=== PATIENT | female | born 1970 | race Caucasian/White ===

== ENCOUNTER 2019-03-18 14:53 | Emergency (ER) | payer BC ==
--- OUTSIDE RECORDS SUMMARY | 2019-03-18 14:59 | XMS REPORT | Continuity of Care Document ---
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 Stefany Myles RPAC Primary Care Physician Unavailable Payers Date Identification Numbers Payment Provider Subscriber Effective: 2018 Policy Number: [id number] Jessica Hahn PayID: [id number] [address] [place] [address] Expires: 2018 Policy Number: [id number] Jessica Hahn Group Number: [id number] [address] PayID: [id number] [place] [address] Advance Directives Description No Information Available Problems Date Description Provider Status Onset: 01/30/2018 Benign essential hypertension Jack Arredondo MD, FACS Active Onset: 01/30/2018 Pure hypercholesterolemia Jack Arredondo MD, FACS Active Onset: 01/30/2018 Lymphadenopathy Jack Arredondo MD, FACS Active Onset: 02/09/2018 Degeneration of intervertebral disc Stefany Myles RPAC Active Note: cervical,dorsal,lumbar Onset: 02/09/2018 Idiopathic scoliosis Stefany Myles RPAC Active Note: mild dorsal/lumbar Onset: 02/10/2018 Allergy to mold Stefany Myles RPAC Active Onset: 02/10/2018 Vitamin D deficiency Stefany Myles RPAC Active Onset: 02/10/2018 Hyperlipidemia Stefany Myles RPAC Active Onset: 02/10/2018 Low back pain Stefany Myles RPAC Active Onset: 06/27/2018 [facility]costal [facility]: 02/21/2019 Screening mammography Jack Arredondo MD,FACS Active Family History Date Family Member(s) Observation Comments : (age 75 Years) Father due to Fisher's Disease Father Skin Cancer Mother due to kidney failure () Mother Stroke Social History Type Date Description Comments Sex Unknown Lives With Alone Diet Patient is on a low fat diet Occupation Currently Working ETOH Use Rarely consumes alcohol Tobacco Use Start: Unknown Patient has never smoked Smoking Status Reviewed: 12/29/18 Patient has never smoked Exercise Type/Frequency Walks daily Allergies, Adverse Reactions, Alerts Date Description Reaction Status Severity Comments 01/24/2018 Hydrocodone hives Active 08/27/2018 Gemifloxacin Hives And Rash Active 01/24/2018 Claritin-D rash & swelling of extremities Active 08/27/2018 Guaifenesin Itchy Rash Active 01/24/2018 Amoxicillin hives Active 08/27/2018 Pseudoephedrine Hives And Swelling Active 01/24/2018 Mucinex Urticaria Active 08/27/2018 Loratadine Hives And Swelling Active 01/24/2018 Factive hives Active 01/30/2018 Vicodin Active 02/10/2018 Statins cannot tolerate Active Medications Medication Date Status Form Strength Qnty SIG Indications Ordering Provider Olopatadine HCL 12/29/ Active Solution 0.1% 5ml instill 1 H10.9 , 2018 drop into Ron, both eyes M.D. two times a day for itchy/watery eyes Magnesium 08/28/ Active Tablets 400mg 1 by mouth Unknown 2017 every day Riboflavin 08/28/ Active Capsules 400mg 1 cap by Unknown 2017 mouth every day Propranolol HCL 02/10/ Active Caps ER 80mg 14cap 1 tab by Bill, ER 2017 24HR s mouth daily Tawnya Velasquez Losartan 02/08/ Active Tablets 100-25mg 14tab take 1 Khan, Potassium/Hydroc 2018 s tablet by jacqueline Velasquezorothiazide mouth every M.D. morning Womens 50+ 00// Active Capsules 1 tab orally Unknown Advanced 0000 once daily Lysine HCL / Active Tablets 1000mg 1 tab orally Unknown 0000 once daily Vitamin D High / Active Capsules 1000Unit 2 tabs by Unknown Potency 0000 mouth every day Shawn-E Complete / Active Tablets 400mg 1tab orally Unknown 0000 DR once daily [place] 3 / Active Capsules 1000mg 1 by mouth Unknown 0000 every day Aloe Vera / Active Capsules 470mg 1cap orally Unknown 0000 daily Zyrtec Allergy / Active Tablets 10mg 1 tab by Unknown 0000 mouth every night Metoclopramide 08/28/ Hx Tablets 10mg 2 tabs by Unknown HCL 2018 - mouth at start of 2017 repeat in 3 hours Rizatriptan 08/28/ Hx Tablets 10mg 1 tab by Unknown Benzoate 2017 - mouth @ start of , 2017 repeat in 2 hours Meloxicam 06/27/ Hx Tablets 15mg 30tab take one R07.82 Khan, 2017 - s tablet by Ron 09/13/ mouth every M.D. 2017 day with food for chest wall pain Levaquin 01/30/ Hx Tablets 500mg 10tab take one R59.0 Arnulfo, 2018 - s tablet by Jack 02/21/ mouth daily MACHO JOSEPH 2018 for 10 days. take it in the middle of your meal Diflucan 01/30/ Hx Tablets 200mg 2tabs take one R59.0 Arnulfo, 2018 - tablet once, Jack 02/21/ with meals MACHO JOSEPH 2018 if you develop yeast infection. may repeat after 3-4 days if no improvement Propranolol HCL / Hx Tablets 20mg 30tab 1 by mouth Khan, 0000 - s every day Ron 02/10/ M.DVikki 2018 Losartan / Hx Tablets 25mg 30tab 1 by mouth Khan, Potassium 0000 - s every day Ron 02/08/ M.DVikki 2018 Immunizations Description No Information Available Vital Signs Date Vital Result Comment 02/21/2019 8:46am BP Systolic 117 mmHg BP Diastolic 71 mmHg Heart Rate 58 /min Respiratory Rate 17 /min Height 65 inches 5'5" Weight 181.00 lb BMI (Body Mass Index) 30.1 kg/m2 BSA (Body Surface Area) 1.90 m2 [place] body weight in kilograms 57 kg 12/29/2018 10:37am BP Systolic Sitting Left Arm 114 mmHg BP Diastolic Sitting Left Arm 84 mmHg Body Temperature 97.0 F Heart Rate 64 /min Respiratory Rate 18 /min Height 65 inches 5'5" Weight 184.00 lb BMI (Body Mass Index) 30.6 kg/m2 BSA (Body Surface Area) 1.91 m2 [place] body weight in kilograms 57 kg O2 % BldC Oximetry 99 % Ra 09/13/2018 1:33pm BP Systolic 117 mmHg BP Diastolic 88 mmHg Body Temperature 96.1 F Heart Rate 65 /min Respiratory Rate 18 /min Height 65 inches 5'5" Weight 182.25 lb BMI (Body Mass Index) 30.3 kg/m2 BSA (Body Surface Area) 1.90 m2 [place] body weight in kilograms 57 kg O2 % BldC Oximetry 98 % 06/27/2018 3:02pm BP Systolic Sitting Right Arm 102 mmHg BP Diastolic Sitting Right Arm 60 mmHg Body Temperature 98.7 F Heart Rate 70 /min reg Respiratory Rate 18 /min Height 65 inches 5'5" Weight 169.00 lb BMI (Body Mass Index) 28.1 kg/m2 BSA (Body Surface Area) 1.84 m2 [place] body weight in kilograms 57 kg O2 % BldC Oximetry 98 % 04/12/2018 9:45am BP Systolic 126 mmHg BP Diastolic 80 mmHg Height 65 inches 5'5" Weight 178.00 lb BMI (Body Mass Index) 29.6 kg/m2 BSA (Body Surface Area) 1.88 m2 [place] body weight in kilograms 57 kg 03/14/2018 1:03pm BP Systolic 128 mmHg BP Diastolic 88 mmHg Height 65 inches 5'5" Weight 178.00 lb BMI (Body Mass Index) 29.6 kg/m2 BSA (Body Surface Area) 1.88 m2 [place] body weight in kilograms 57 kg 02/21/2018 9:07am BP Systolic 122 mmHg BP Diastolic 88 mmHg Height 65 inches 5'5" Weight 178.00 lb BMI (Body Mass Index) 29.6 kg/m2 BSA (Body Surface Area) 1.88 m2 [place] body weight in kilograms 57 kg 02/10/2018 9:00am BP Systolic Sitting Right Arm 120 mmHg BP Diastolic Sitting Right Arm 68 mmHg Heart Rate 70 /min Height 65 inches 5'5" Weight 183.00 lb BMI (Body Mass Index) 30.4 kg/m2 BSA (Body Surface Area) 1.90 m2 [place] body weight in kilograms 57 kg O2 % BldC Oximetry 98 % ra 01/30/2018 9:17am BP Systolic 128 mmHg BP Diastolic 88 mmHg Height 66 inches 5'6" Weight 181.00 lb BMI (Body Mass Index) 29.2 kg/m2 BSA (Body Surface Area) 1.92 m2 [place] body weight in kilograms 59 kg 01/24/2018 12:58pm BP Systolic Sitting Left Arm 130 mmHg BP Diastolic Sitting Left Arm 88 mmHg Body Temperature 99.2 F Heart Rate 84 /min Respiratory Rate 16 /min Height 66 inches 5'6" Weight 184.00 lb BMI (Body Mass Index) 29.7 kg/m2 BSA (Body Surface Area) 1.93 m2 [place] body weight in kilograms 59 kg O2 % BldC Oximetry 98 % Results Test Date Facility Test Result H/L Range Note Monocytes/leuk NFr 08/27/20 N2N/CCD Import Monocytes/leuk NFr 7.8 4.3- 13.2 Bld Auto 18 Bld Auto Neutrophils # Bld 08/27/20 N2N/CCD Import Neutrophils # Bld 3.35 1.8- 7.0 Auto 18 Auto Neutrophils/leuk NFr 08/27/20 N2N/CCD Import Neutrophils/leuk 59.2 40.4- 72. Bld Auto 18 NFr Bld Auto 8 Potassium SerPl-sCnc 08/27/20 N2N/CCD Import Potassium 3.5 3.5-5.1 18 SerPl-sCnc RDW RBC Auto 08/27/20 N2N/CCD Import RDW RBC Auto 40.8 3-47 18 RDW RBC Auto-Rto 08/27/20 N2N/CCD Import RDW RBC Auto-Rto 13.7 11.7-14. 18 4 Serum carbon dioxide 08/27/20 N2N/CCD Import Serum carbon 29 21-32 measurement 18 dioxide measurement Serum or plasma 08/27/20 N2N/CCD Import Serum or plasma 3.6 3.4-5.0 albumin measurement 18 albumin measurement (mass/volume) (mass/volume) Serum or plasma 08/27/20 N2N/CCD Import Serum or plasma 89 45-117 alkaline phosphatase 18 alkaline measurement ( phosphatase measurement (enzymatic activity/volume) Serum or plasma 08/27/20 N2N/CCD Import Serum or plasma 21 15-37 aspartate 18 aspartate aminotransferase aminotransferase measure measurement (enzymatic activity/volume) Serum or plasma 08/27/20 N2N/CCD Import Serum or plasma 9.4 8.5-10.1 calcium measurement 18 calcium measurement (mass/volume) (mass/volume) Serum or plasma 08/27/20 N2N/CCD Import Serum or plasma 1.0 0.6-1.3 creatinine 18 creatinine measurement measurement (mass/volum (mass/volume) Serum or plasma 08/27/20 N2N/CCD Import Serum or plasma 94 74-106 glucose measurement 18 glucose measurement (mass/volume) (mass/volume) Serum or plasma 08/27/20 N2N/CCD Import Serum or plasma 7.8 6.4-8.2 protein measurement 18 protein measurement (mass/volume) (mass/volume) Serum or plasma 08/27/20 N2N/CCD Import Serum or plasma 0.5 0.2-1.0 total bilirubin 18 total bilirubin measurement (mass/ measurement (mass/volume) Serum or plasma urea 08/27/20 N2N/CCD Import Serum or plasma 17 7-18 nitrogen measurement 18 urea nitrogen (mass/vo measurement (mass/volume) Serum or plasma urea 08/27/20 N2N/CCD Import Serum or plasma 17.0 nitrogen/creatinine 18 urea mass rati nitrogen/creatinine mass ratio Serum sodium 08/27/20 N2N/CCD Import Serum sodium 141 136-145 measurement 18 measurement CBC W/Automated Diff 08/27/20 [facility] White Blood Count 5.7 K/uL N 3.1-10.7 1 [address] [place] [address] [phone] Red Blood Count 4.89 M/uL N 3.90-5.40 Hemoglobin 14.1 gm/dL N 11.6-15.8 Hematocrit 40.9 % N 36.0-46.1 Mean Cell Volume 83.6 fl N 80.9-99.0 Mean Corpuscular HGB 28.8 pg N 25.9-32.7 Mean Corpuscular HGB Conc 34.5 g/dL High 30.8-34.3 Platelet Count 198 K/uL N 155-360 Red Cell Distri Width SD 40.8 fl N 3-47 Red Cell Distri Width %CV 13.7 % N 11.7-14.4 Mean Platelet Volume 9.4 fL N 8.9-12.4 Neut% 59.2 % N 40.4-72.8 Lymph % 30.3 % N 20.0-42.0 [place] % 7.8 % N 4.3-13.2 Eo% 2.5 % N 0.0-6.6 Bas% 0.2 % N 0.0-1.1 Neut# 3.35 K/uL N 1.8-7.0 Lymph # 1.71 K/uL N 1.0-4.0 [place] # 0.44 K/uL N 0.3-0.9 Eos # 0.14 K/uL N 0.0-0.5 Baso # 0.01 K/uL N 0.0-0.1 Comprehensive Metabolic 08/27/2018 [facility] Glucose 94 mg/dL N 74-106 [address] [place] [address] [phone] BUN 17 mg/dL N 7-18 Creatinine 1.0 mg/dL N 0.6-1.3 Glom Filtration Rate, Estimate >60 mL/min >60 If >60 mL/min >60 2 BUN/Creat 17.0 ratio Sodium 141 mmol/L N 136-145 Potassium 3.5 mmol/L N 3.5-5.1 Chloride 104 mmol/L N 98-107 Carbon Dioxide 29 mmol/L N 21-32 Anion Gap 8 mEq/L N 8-16 Calcium 9.4 mg/dL N 8.5-10.1 Total Protein 7.8 g/dL N 6.4-8.2 Albumin 3.6 g/dL N 3.4-5.0 Globulin 4.2 g/dL N 1.9-4.3 Alb/Glob 0.9 ratio Bilirubin,Total 0.5 mg/dL N 0.2-1.0 Sgot/Ast 21 U/L N 15-37 SGPT/Alt 33 U/L N 12-78 Alkaline Phosphatase 89 U/L N 45-117 Alt SerPl-cCnc 08/27/2018 N2N/CCD Import Alt SerPl-cCnc 33 12-78 Albumin/Glob SerPl 08/27/2018 N2N/CCD Import Albumin/Glob SerPl 0.9 Anion Gap 08/27/2018 N2N/CCD Import Anion Gap 8 8-16 SerPl-sCnc SerPl-sCnc Automated blood 08/27/2018 N2N/CCD Import Automated blood 0.01 0.0-0.1 basophil count basophil count (count/volume) (count/volume) Automated blood 08/27/2018 N2N/CCD Import Automated blood 0.14 0.0-0.5 eosinophil count eosinophil count Automated blood 08/27/2018 N2N/CCD Import Automated blood 40.9 36.0- 46.1 hematocrit (volume hematocrit (volume fraction) fraction) Automated blood 08/27/2018 N2N/CCD Import Automated blood 1.71 1.0-4.0 lymphocyte count lymphocyte count (number/volume) (number/volume) Automated blood 08/27/2018 N2N/CCD Import Automated blood 198 155-360 platelet count platelet count Automated blood 08/27/2018 N2N/CCD Import Automated blood 9.4 8.9-12.4 platelet mean platelet mean volume measurement volume measurement Lymphocytes/leuk 08/27/2018 N2N/CCD Import Lymphocytes/leuk 30.3 20.0- 42.0 NFr Bld Auto NFr Bld Auto Globulin Ser 08/27/2018 N2N/CCD Import Globulin Ser 4.2 1.9-4.3 Calc-mCnc Calc-mCnc Eosinophil/leuk 08/27/2018 N2N/CCD Import Eosinophil/leuk 2.5 0.0-6.6 NFr Bld Auto NFr Bld Auto Chloride 08/27/2018 N2N/CCD Import Chloride 104 98-107 SerPl-sCnc SerPl-sCnc Blood monocytes 08/27/2018 N2N/CCD Import Blood monocytes 0.44 0.3-0.9 automated count automated count (number/volume) (number/volume) Blood leukocytes 08/27/2018 N2N/CCD Import Blood leukocytes 5.7 3.1- 10.7 automated count automated count (number/volume) (number/volume) Blood hemoglobin 08/27/2018 N2N/CCD Import Blood hemoglobin 14.1 11.6- 15.8 measurement measurement (mass/volume) (mass/volume) Blood erythrocytes 08/27/2018 N2N/CCD Import Blood erythrocytes 4.89 3.90-5.40 automated count automated count (number/volume) (number/volume) Basophils/leuk NFr 08/27/2018 N2N/CCD Import Basophils/leuk NFr 0.2 0.0- 1.1 Bld Auto Bld Auto Automated 08/27/2018 N2N/CCD Import Automated 83.6 80.9-99.0 erythrocyte mean erythrocyte mean corpuscular volume corpuscular volume Automated 08/27/2018 N2N/CCD Import Automated 34.5 High 30.8-34.3 erythrocyte mean erythrocyte mean corpuscular corpuscular hemoglobin hemoglobin concentration measurement (mass/volume) Automated 08/27/2018 N2N/CCD Import Automated 28.8 25.9-32.7 erythrocyte mean erythrocyte mean corpuscular corpuscular hemoglobin hemoglobin (mass per erythrocyte) CBS W/Automated 03/21/2018 [facility] White Blood Count 7.1 K/uL N 3.1-10.7 3 Diff [address] [place] [address] [phone] Red Blood Count 4.66 M/uL N 3.90-5.40 Hemoglobin 13.5 gm/dL N 11.6-15.8 Hematocrit 38.5 % N 36.0-46.1 Mean Cell Volume 82.6 fl N 80.9-99.0 Mean Corpuscular HGB 29.0 pg N 25.9-32.7 Mean Corpuscular HGB Conc 35.1 g/dL High 30.8-34.3 Platelet Count 217 K/uL N 155-360 Red Cell Distri Width SD 40.7 fl N 3-47 Red Cell Distri Width %CV 14.1 % N 11.7-14.4 Mean Platelet Volume 9.8 fL N 8.9-12.4 Neut% 61.6 % N 40.4-72.8 Lymph % 30.5 % N 20.0-42.0 [place] % 5.9 % N 4.3-13.2 Eo% 1.7 % N 0.0-6.6 Bas% 0.3 % N 0.0-1.1 Neut# 4.35 K/uL N 1.8-7.0 Lymph # 2.15 K/uL N 1.0-4.0 [place] # 0.42 K/uL N 0.3-0.9 Eos # 0.12 K/uL N 0.0-0.5 Baso # 0.02 K/uL N 0.0-0.1 1 [place] FOR 3 DAYS 2 Note: Persistent reduction for 3 months or more in an eGFR <60 mL/min/1.73 m2 defines CKD. Patients with eGFR values >/=60 mL/min/1.73 m2 may also have CKD if evidence of persistent proteinuria is present. The original MDRD equation for estimated GFR is not valid for patients less than 18 years of age. Additional information may be found at www.kdoqi.org. 3 R59.0 Procedures Date Code Description Status 03/30/2018 75779 Biopsy/Exc.Lymph Node/Superficial Completed 03/30/[address] Soft Tissue Local Device Completed 02/09/2018 [id number] Mammogram Completed Encounters Type Date Location Provider Dx Diagnosis Office Visit 12/29/2018 Primary Care Shameka, H10.9 Unspecified 10:30a Office Stefany [facility] conjunctivitis I10 Essential (primary) hypertension Office Visit 09/13/2018 1:30p Primary Care Aubree G43.809 Other migraine, Office NIRALI Tubbs not intractable, without status migrainosus I10 Essential (primary) hypertension Office Visit 06/27/2018 2:45p Primary Care Shameka, I10 Essential ( primary) Office Stefany [facility] hypertension R07.82 Intercostal pain Office Visit 04/12/2018 9:45a Surgical Office Arnulfo R59.0 Localized enlarged Jack, lymph nodes MACHO JOSEPH Office Visit 03/14/2018 1:00p Surgical Office Arnulfo R59.0 Localized enlarged Jack, lymph nodes MACHO JOSEPH Office Visit 02/21/2018 9:00a Surgical Office Arnulfo R59.0 Localized enlarged Jack, lymph nodes MACHO JOSEPH Office Visit 02/10/2018 9:00a Primary Care Shameka, I10 Essential ( primary) Office Stefany [facility] hypertension E78.5 Hyperlipidemia, unspecified M54.5 Low back pain Office Visit 01/30/2018 9:00a Surgical Office Jack Arredondo R59.0 Localized MACHO JOSEPH enlarged lymph nodes Office Visit 01/24/2018 1:00p Primary Care Andrae, 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 one year mammogram from last study then will see her in clinic, unless new development happen in her breasts.
[2019-03-18 15:17] VITALS: BP 121/91
[2019-03-18] MEDS ORDERED: Albuterol 2.5 MG/3 ML NEB.SOL* (0.083%) INH ONE (15:26)
--- NOTE | 2019-03-18 15:27 | UC ---
General HPI - HPI Summary HPI Summary: per triage, ONSET 4 DAYS AGO WITH CHEST CONGESTION COUGH, NEXT DAY CHILLS AND FEVER..LOOSE BMS ONE NIGHT. CHEST CONGESTION AND WHEEZING. HEADACHE AND SINUS PRESSURE - History of Current Complaint Stated Complaint: FEVER, COUGH Time Seen by Provider: 03/18/19 15:04 Hx Obtained From: Patient Pain Intensity: 6 Associated Signs & Symptoms: Negative: Chest Pain - Allergy/Home Medications Allergies/Adverse Reactions: Allergies Allergy/AdvReac Type Severity Reaction Status Date / Time acetaminophen [From Vicodin] Allergy Hives Verified 03/18/19 15:09 gemifloxacin [From Factive] Allergy Hives Verified 03/18/19 15:09 hydrocodone [From Vicodin] Allergy Hives Verified 03/18/19 15:09 loratadine [From Claritin-D] Allergy Hives Verified 03/18/19 15:09 pseudoephedrine Allergy Hives Verified 03/18/19 15:09 [From Claritin-D] trimethoprim Allergy Hives Verified 03/18/19 15:09 Home Medications: Home Medications D-Methorphan/PE/Acetaminophen [Vicks Dayquil Cold & Flu] 1 cap PO PRN 03/18/19 [ History] Dm/Acetaminophen/Doxylamine [Vicks Nyquil Cold & Flu N 15-6.25-325 mg] 1 cap PO PRN 03/18/19 [History] PMH/Surg Hx/FS Hx/Imm Hx Cardiovascular History: Hypertension - Surgical History Surgical History: Yes Surgery Procedure, Year, and Place: hysterectomy. gallbladder. hernia repair - Family History Known Family History: Positive: Non-Contributory - Social History Occupation: Employed Full-time Alcohol Use: Occasionally Substance Use Type: None Smoking Status (MU): Never Smoked Tobacco - Immunization History Vaccination Up to Date: Yes Review of Systems All Other Systems Reviewed And Are Negative: Yes Constitutional: Positive: Fever ENT: Positive: Sinus Congestion Respiratory: Positive: Shortness Of Breath, Cough Gastrointestinal: Positive: Diarrhea Musculoskeletal: Positive: Myalgia Neurological: Positive: Headache Physical Exam Triage Information Reviewed: Yes Appearance: Well-Appearing Vital Signs: Initial Vital Signs Temp 99.1 F 03/18/19 15:12 Pulse 67 03/18/19 15:12 Resp 18 03/18/19 15:12 BP 121/91 03/18/19 15:12 Pulse Ox 98 03/18/19 15:12 Vital Signs Reviewed: Yes Eyes: Positive: Conjunctiva Clear ENT: Positive: Pharynx normal, TMs normal. Negative: Nasal drainage Neck: Positive: Supple, Nontender, No Lymphadenopathy Respiratory: Positive: No respiratory distress, Decreased breath sounds, Rhonchi , Wheezing Cardiovascular: Positive: RRR, No Murmur Abdomen Description: Positive: Nontender, No Organomegaly, Soft Bowel Sounds: Positive: Present Musculoskeletal: Positive: ROM Intact Neurological: Positive: Alert Psychological: Positive: Age Appropriate Behavior Skin Exam: Normal Diagnostics - Radiology No standard instances Radiology Interpretation Completed By: Radiologist - cxr=MPRESSION: No active cardiopulmonary disease is noted. Re-Evaluation - Re-Evaluation First Eval Re-Evaluation Time: 15:52 Change: Improved - better aeration and less rhonchi and wheezing. Course/Dx - Course Course Of Treatment: RAPID FLU=NEGATIVE. - Diagnoses Provider Diagnosis: URI (upper respiratory infection), Bronchitis Discharge - Sign-Out/Discharge Documenting (check all that apply): Patient Departure All imaging exams completed and their final reports reviewed: No Studies - Discharge Plan Condition: Stable Disposition: HOME Prescriptions: Albuterol HFA INHALER* [Ventolin HFA Inhaler*] 2 puff INH Q6H #1 mdi predniSONE TAB* [Deltasone TAB*] 50 mg PO DAILY #5 tab Patient Education Materials: Upper Respiratory Infection (DC), Acute Bronchitis (ED) Forms: *Work Release Referrals: Stefany Myles PA [Primary Care Provider] - 5 Days - Billing Disposition and Condition Condition: STABLE Disposition: Home
[2019-03-18 15:47] LABS: Influenza A Molecular NEGATIVE (Negative); Influenza B Molecular NEGATIVE (Negative)
== END 2019-03-18 16:02 | disposition home or self-care (01) ==
LOC: UCCORT 14:53
DX: J06.9 Acute upper respiratory infection, unspecified (principal); J40 Bronchitis, not specified as acute or chronic; R09.89 Other specified symptoms and signs involving the circulatory and respiratory systems; R05 Cough; I10 Essential (primary) hypertension; R50.9 Fever, unspecified; Z88.5 Allergy status to narcotic agent; Z88.8 Allergy status to other drugs, medicaments and biological substances
CPT/HCPCS: 71046; 99212; G0463